=== PATIENT | female | born 1940 | race Caucasian/White ===

== ENCOUNTER 2023-10-07 10:23 | Emergency (ER) | payer MEDICARE, OTHER ==
[~2023-10-07] VITALS: Ht 170.2 cm; Wt 66.8 kg
[2023-10-07] MEDS ORDERED: LOSA-416 PO (10:48)
[2023-10-07] MEDS: traMADol 50MG tablet PO ONE (11:04)
[2023-10-07] MEDS ORDERED: TRAM50TA2 PO (11:30)
[2023-10-07 11:56] VITALS: BP 137/39; PULSE 88; RESP 14; TEMP 97.8; O2SAT 97
== END 2023-10-07 11:59 | disposition home or self-care (01) ==
LOC: ER 10:23
DX: S93.691A Other sprain of right foot, initial encounter (principal); Z88.0 Allergy status to penicillin; Z79.899 Other long term (current) drug therapy; X58.XXXA Exposure to other specified factors, initial encounter; Y93.89 Activity, other specified; Y92.89 Other specified places as the place of occurrence of the external cause; Y99.8 Other external cause status
CPT/HCPCS: 73610; 73630; 99284

== ENCOUNTER 2024-05-31 10:44 | Emergency (ER) | payer MEDICARE, OTHER ==
[~2024-05-31] VITALS: Ht 170.2 cm; Wt 68.7 kg
[~2024-05-31 10:44] MED LIST: LOSA-416 PO
[2024-05-31 11:44] LABS: BASOPHILS % (AUTO) 0.5 % (0-1); EOSINOPHILS # (AUTO) 0.1 X10'3 (0-0.9); EOSINOPHILS % (AUTO) 0.8 % (0-6); HEMATOCRIT 37.9 % (35.0-45.0); HEMOGLOBIN 12.6 g/dl (12.0-16.0); LYMPHOCYTES # (AUTO) 1.3 X10'3 (1.1-4.8); LYMPHOCYTES % (AUTO) 19.2 % (21-51); MEAN CORPUSCULAR HEMOGLOBIN 29.1 PG (27.0-31.0); MEAN CORPUSCULAR HGB CONC 33.1 g/dL (33.0-36.5); MEAN CORPUSCULAR VOLUME 87.9 FL (78-98); MEAN PLATELET VOLUME 9.1 FL (7.4-10.4); MONOCYTES # (AUTO) 0.7 X10'3 (0-0.9); MONOCYTES % (AUTO) 10.7 % (2-12); NEUTROPHILS # (AUTO) 4.8 X10'3 (1.8-7.7); NEUTROPHILS % (AUTO) 68.8 % (42-75); PLATELET COUNT 183 X10'3 (140-440); RED BLOOD COUNT 4.31 X10'6 (4.20-5.60); RED CELL DISTRIBUTION WIDTH 14.1 % (11.5-14.5)
[2024-05-31 12:02] LABS: ALANINE AMINOTRANSFERASE 22 U/L (12-78); ALBUMIN 3.4 G/DL (3.4-5.0); ALBUMIN/GLOBULIN RATIO 0.9 (1.1-1.5); ALKALINE PHOSPHATASE 71 IU/L (46-116); ANION GAP 13 (8-16); ASPARTATE AMINO TRANSFERASE 18 U/L (10-37); BILIRUBIN,TOTAL 0.4 MG/DL (0.1-1.0); BLOOD UREA NITROGEN 38 MG/DL (7-18); BUN/CREATININE RATIO 36.2 (10.0-20.0); CHLORIDE 102 MMOL/L (99-107); CREATININE 1.05 MG/DL (0.40-0.90); GLUCOSE 85 MG/DL (70-104); LIPASE 59 U/L (16-77); POTASSIUM 4.3 MMOL/L (3.5-5.1); SODIUM 138 MMOL/L (135-145); TOTAL CARBON DIOXIDE 22.8 MMOL/L (24-32); TOTAL PROTEIN 7.2 G/DL (6.4-8.2); eCRCL 38 ML/MIN; eGFR 50 ML/MIN
[2024-05-31 12:27] LABS: BILIRUBIN,URINE NEGATIVE (Neg); CLARITY,URINE CLEAR (Clear); COLOR,URINE YELLOW (Yellow); GLUCOSE, URINE NEGATIVE (Neg); KETONES,URINE NEGATIVE (Neg); LEUKOCYTE ESTERASE ,URINE SMALL (Neg); NITRITES, URINE NEGATIVE (Neg); OCCULT BLOOD,URINE NEGATIVE (Neg); PROTEIN,URINE NEGATIVE (Neg); UROBILINOGEN,URINE 0.2 E.U/dL (0.2-1.0)
[2024-05-31 12:32] LABS: UA COLLECTION TYPE CLN CATCH MIDSTREAM
[2024-05-31 12:47] LABS: BACTERIA,URINE NONE SEEN /HPF (Neg); MUCUS STRANDS FEW /LPF (Neg); RBC,URINE NONE SEEN /HPF (0-2); SQUAMOUS EPITHELIAL CELL,UR MODERATE /LPF (FEW)
--- NOTE | 2024-05-31 12:51 | Physician Documentation ---
History of Present Illness ~ Chief Complaint: Urinary Symptoms Stated Complaint: UTI/MED COMPLICATION Time Seen by MD: 11:02 HPI 84-year-old female presents with abdominal pain and discomfort which began after starting to take nitrofurantoin for a UTI. She states she was also allergic to penicillins. States that she has had some diarrhea as well. Denies any fevers does report some what improved urinary symptoms. Medication Reconciliation Allergies: Coded Allergies: Penicillins (Verified Allergy, Unknown, 05/31/24) Scheduled Ciprofloxacin HCl (Ciprofloxacin HCl), 1 TAB PO Q12H Losartan* (Cozaar*), 1 TAB PO DAILY, (Reported) Review of Systems All Other Systems at this time: Reviewed and Negative ROS As stated above in the HPI, otherwise all systems are reviewed and negative. Physical Exam Vital Signs: Temperature: 97.9, Source: Oral, Heart Rate: 88, Respiratory Rate: 18, BP: 128/73, Pulse Oximetry: 97, Weight: 68.700 Physical Exam General: Alert, no apparent distress. Respiratory: Lungs clear, no respiratory distress. Cardiovascular: Regular rate and rhythm, no murmurs. Gastrointestinal: Soft, nontender, nondistended. Bowels sounds present. Neurologic: Oriented x4. Psychiatric: Normal mood and affect. Skin: Normal color, warm and dry. No edema, no ecchymosis. Progress Results/Orders Results/Orders Orders - KUMAR JULES APPEALS REPRESENTATIVE Cult Urine + [address] (05/31/24 12:48) Completed Orders - KUMAR JULES APPEALS REPRESENTATIVE Cbc/Diff (05/31/24 11:19) BMP (05/31/24 11:19) Lipase (05/31/24 11:19) CMP (05/31/24 11:19) Ua W/Microscopic, Cult If Ind (05/31/24 11:55) Vital Signs 05/31/24 10:47 Temp 97.9 Pulse 88 Resp 18 B/P (MAP) 128/73 Pulse Ox 97 Laboratory Tests Test 05/31/24 11:35 05/31/24 11:55 White Blood Count 7.0 Red Blood Count 4.31 Hemoglobin 12.6 Hematocrit 37.9 Mean Corpuscular Volume 87.9 Mean Corpuscular Hemoglobin 29.1 Mean Corpuscular Hemoglobin Concent 33.1 Red Cell Distribution Width 14.1 Platelet Count 183 Mean Platelet Volume 9.1 Neutrophils (%) (Auto) 68.8 Lymphocytes (%) (Auto) 19.2 L Monocytes (%) (Auto) 10.7 Eosinophils (%) (Auto) 0.8 Basophils (%) (Auto) 0.5 Neutrophils # (Auto) 4.8 Lymphocytes # (Auto) 1.3 Monocytes # (Auto) 0.7 Eosinophils # (Auto) 0.1 Basophils # (Auto) 0.0 CBC Comment Sodium Level 138 Potassium Level 4.3 Chloride Level 102 Carbon Dioxide Level 22.8 L Anion Gap 13 Blood Urea Nitrogen 38 H Creatinine 1.05 H Estimated GFR/1.73 m2 50 BUN/Creatinine Ratio 36.2 H Glucose Level 85 Calcium Level 10.0 Total Bilirubin 0.4 Aspartate Amino Transf (AST/SGOT) 18 Alanine Aminotransferase (ALT/SGPT) 22 Alkaline Phosphatase 71 Total Protein 7.2 Albumin 3.4 Globulin 3.8 Albumin/Globulin Ratio 0.9 L Lipase 59 Chemistry Comments Urine Specimen Description Cln catch midstream Urine Color Yellow Urine Clarity Clear Urine pH 6.0 Urine Specific [place] 1.010 Urine Protein Negative Urine Glucose (UA) Negative Urine Ketones Negative Urine Occult Blood Negative Urine Nitrite Negative Urine Bilirubin Negative Urine Urobilinogen 0.2 Urine Leukocyte Esterase Small H Urine RBC None seen Urine WBC 5-10 H Urine Squamous Epithelial Cells Moderate Urine Bacteria None seen Urine Mucus Few Urine Culture Indicated Indicated Volume Urine Centrifuged 10 ml Urine Comment Medical Decision Making Findings He was done patient has side effects from nitrofurantoin a I am going to change her antibiotic. Due to her age I do not think Bactrim is a good choice therefore ciprofloxacin we will likely be best tolerated in her case Discussed with her at length about returning for any worsening symptoms to monitor for fever and increased urinary frequency Urinary Diff Dx:Considerations: Include: AAA, , Aortic dissection, Appendicitis, Bowel obstruction, Cholelithiasis, Choleangitis, DJD, Ectopic , Hepatitis, HNP, Impaction, Intrauterine , Musculoskeletal pain, Ovarian torsion, Pancreatitis, PID, Post-Op complication, Pyelonephritis, Renal failure, Strain, Urinary Obstruction, Urolithiasis, Urinary retention, UTI, Vaginitis, Other Departure Disposition: 01 HOME / SELF CARE / HOMELESS Impression: Primary Impression: Acute urinary tract infection Condition: Stable Discharge Instructions: Urinary Tract Infection, Adult Referrals: NO PRIMARY CARE PROVIDER (PCP) Prescriptions Ciprofloxacin HCl (Ciprofloxacin HCl) 500 Mg Tab 1 TAB PO Q12H for 7 Days, #14 TAB Prov: KUMAR JULES APPEALS REPRESENTATIVE 05/31/24 Signature Scribe Signature: c Attestation: The note accurately reflects work and decisions made by me.Kumar Jules - RODOLFO 05/31/24 13:09 KUMAR JULES APPEALS REPRESENTATIVE May 31, 2024 12:51
[2024-05-31] MEDS ORDERED: CIPR-202 PO (13:05)
[2024-05-31 13:11] VITALS: BP 118/70; PULSE 84; RESP 16; TEMP 97.7; O2SAT 97
== END 2024-05-31 13:12 | disposition home or self-care (01) ==
LOC: ER 10:45
DX: N39.0 Urinary tract infection, site not specified (principal); Z88.0 Allergy status to penicillin
CPT/HCPCS: 36415; 80053; 81001; 83690; 85025; 87088; 99283